=== PATIENT | male | born 1985 | race African-American/Black ===

== ENCOUNTER 2016-11-17 18:02 | Emergency (ER) | payer BC ==
[~2016-11-17] VITALS: Ht 182.9 cm; Wt 70.2 kg
[~2016-11-17 18:02] MED LIST: ADDERALL XR30 MG PO; ADDERALL10 MG PO; ALBUTEROL0.09 MG/A4 IH; AMOXICILLIN 50500 MG PO; AMOXICILLIN875 MG PO; ANTIDEPRESSANT; ARTHROTEC 550 MG/TAB PO; BACTRIM DS 8001 TAB PO; CEFTIN500 MG PO; CEPHALEXIN250 M1 PO; FLEXERIL 1010 MG/TAB PO; LORTAB 5/500 501 TAB PO; NAPROSYN PO; NO HOME MEDICATIONS; NORCO 325 MG-51 TAB PO; PEPCID 20MG TAB20 MG PO; SEPTRA DS 8001 TAB PO; VICODIN 5/5001 UDTAB PO
[2016-11-17 18:10] VITALS: BP 139/81; TEMP 98.2
[2016-11-17] MEDS ORDERED: DOXYCYCLINE 10100 MG PO (19:04)
[2016-11-17] MEDS ORDERED: PERCOCET 325 MG1 TA2 PO (19:04)
[2016-11-17 19:17] VITALS: PULSE 78
== END 2016-11-17 19:17 | disposition home or self-care (01) ==
LOC: COL.ER 18:02
DX: L02.11 Cutaneous abscess of neck (principal); F17.210 Nicotine dependence, cigarettes, uncomplicated; Z87.11 Personal history of peptic ulcer disease